=== PATIENT | female | born 1995 | race Caucasian/White ===

== ENCOUNTER 2019-01-04 12:27 | Outpatient (CLI) | payer OTHER | END 2019-01-04 12:28 | disposition critical access hospital (66) | LOC: EMS 12:27 | PROVIDERS: ATTEND Surgery | DX: S89.91XA Unspecified injury of right lower leg, initial encounter (principal); X50.9XXA Other and unspecified overexertion or strenuous movements or postures, initial encounter; Y93.72 Activity, wrestling; Y92.009 Unspecified place in unspecified non-institutional (private) residence as the place of occurrence of the external cause | CPT/HCPCS: A0425; A0427 ==

== ENCOUNTER 2019-01-04 12:29 | Emergency (ER) | payer OTHER ==
[2019-01-04] MEDS ORDERED: PROPOFOL 200 MG/20 ML VIAL IVP STA (12:31)
[2019-01-04] MEDS ORDERED: SODIUM CHLORIDE 0.9% 1,000 ML IV ONE (12:32)
--- NOTE | 2019-01-04 12:36 | ED Physician Documentation ---
PD HPI LOWER EXT INJURY - Stated complaint Stated Complaint: DISLOCATED KNEE - History obtained from History obtained from: Patient - History of Present Illness PD HPI LOW EXT INJURY LOCATION: Right (She is a history of dislocated patella x1 about 7 years ago. It happened again just prior to arrival. It is very painful. She received 100 mcg of fentanyl prior to arrival.) Review of Systems Constitutional: reports: Reviewed and negative Throat: reports: Reviewed and negative Cardiac: reports: Reviewed and negative PD PAST MEDICAL HISTORY - Allergies Allergies/Adverse Reactions: Allergies Allergy/AdvReac Type Severity Reaction Status Date / Time No Known Drug Allergies Allergy Verified 01/04/19 12:31 PD ED PE NORMAL - Vitals Vital signs reviewed: Yes - General General: Alert and oriented X 3, No acute distress - Extremities Extremities: Other (Obviously laterally Dislocated right patella, held in slight flexion. 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 fracture, proximal tibial bone island) Procedures - Reduction Body part reduced: Right, Knee, Patella Fracture or dislocation: Dislocation (Leg was simply extended in a pop right back in.) Anesthesia: Conscious sedation Reduction aftercare: NV intact, Xray confirms reduction, Alignment improved, Splint applied - Procedural sedation Sedation prep: Informed consent, Time out completed, Last meal (8am), PE performed, AHA 1 - healthy Sedation medications: fentanyl (100mcg given [employer] by EMS), propofol (70mg IVP x1) Patient status during sedation: Responds to tactile, Vitals remained stable, Maintained airway, Recovered uneventfully Sedation recovery: Recovered uneventfully Time in sedation (Minutes): 10 PD MEDICAL DECISION MAKING - ED course ED course: 23-year-old woman with a recurrent right patellar dislocation. She wanted to be sedated for the procedure and it was easily reduced under sedation and placed in a knee immobilizer. Advised that [place] of her x-rays as well as a knee immobilizer pending that follow-up. Departure - Departure Disposition: 01 Home, Self Care Clinical Impression: Dislocation of right patella Condition: Good Record reviewed to determine appropriate education?: Yes Instructions: ED Dislocation Patella Comments: Keep the splint on and dry while you are up and around, you bed or in the bath. [place] 1 [place] with a copy of the x-rays on CD. Return for new or worsening symptoms. Motrin as needed for pain. Discharge Date/Time: 01/04/19 13:38
[2019-01-04 13:39] VITALS: BP 108/96
--- NOTE | 2019-01-04 13:42 | XRAY Report ---
Reason: post reduction Procedure Date: 01/04/2019 Accession Number: [id number] / [id number] Procedure: XR - Knee 3 View RT CPT Code: FULL RESULT: EXAM: RIGHT KNEE RADIOGRAPHY EXAM DATE: 01/04/2019 01:08 PM. CLINICAL HISTORY: Post reduction. COMPARISON: None. TECHNIQUE: 3 views. FINDINGS: Bones: Chronic appearing ossification/ossifications at the medial margin of patellar, consistent with a bipartite patella or old fracture. No acute fracture or bone lesions. Sclerotic focus within the posterior medial proximal tibia presently represents a benign finding such as a bone island. Joints: Normal. No torrey effusion. No subluxations. Soft Tissues: Normal. No soft tissue swelling. IMPRESSION: 1. No acute abnormality. 2. 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 3. Proximal tibial probable benign bone island. [facility]
== END 2019-01-04 13:38 | disposition home or self-care (01) ==
LOC: ED 12:29
DX: M22.01 Recurrent dislocation of patella, right knee (principal); X50.1XXA Overexertion from prolonged static or awkward postures, initial encounter; Y93.83 Activity, rough housing and horseplay
CPT/HCPCS: 27560; 94770; 99152